=== PATIENT | female | born 1975 | race Caucasian/White ===

== ENCOUNTER 2019-04-08 20:31 | Emergency (ER) | payer OTHER ==
[~2019-04-08] VITALS: Ht 157.5 cm; Wt 73.0 kg
== END 2019-04-08 22:43 | disposition home or self-care (01) ==
LOC: ER 20:31
DX: S81.821A Laceration with foreign body, right lower leg, initial encounter (principal); S80.02XA Contusion of left knee, initial encounter; S80.01XA Contusion of right knee, initial encounter; W10.8XXA Fall (on) (from) other stairs and steps, initial encounter; Y93.89 Activity, other specified; Y92.69 Other specified industrial and construction area as the place of occurrence of the external cause; Y99.8 Other external cause status

== ENCOUNTER 2021-06-30 05:24 | Emergency (ER) | payer OTHER ==
[~2021-06-30] VITALS: Ht 157.5 cm; Wt 71.2 kg
== END 2021-06-30 15:57 | disposition home or self-care (01) ==
LOC: ER 05:24
DX: K29.60 Other gastritis without bleeding (principal)

== ENCOUNTER 2022-10-24 09:58 | Emergency (ER) | payer OTHER ==
[~2022-10-24] VITALS: Ht 157.5 cm; Wt 68.0 kg
== END 2022-10-24 15:10 | disposition home or self-care (01) ==
LOC: ER 09:58
DX: K29.70 Gastritis, unspecified, without bleeding (principal); Z20.822 Contact with and (suspected) exposure to COVID-19

== ENCOUNTER 2023-05-26 10:55 | Inpatient (IN) | payer OTHER ==
[~2023-05-26] VITALS: Ht 157.5 cm; Wt 68.0 kg
--- NOTE | 2023-05-26 11:25 | NUR ---
PACIENTE ALERTA Y ORIENTADA POR 3 ESFERAS REFIERE TAMERA DOLOR ABDONMINAL Y MAS DE 10 ESPISODIOS DE VOMITOS, SE MIDEN S/V, SE UBICA PACIENTE.
--- NOTE | 2023-05-26 12:40 | NUR ---
SE LE ORIENTA A PACIENTE SOBRE LAS ORDENES MEDICAS, REFIERE ENTENDER LAS MISMAS. SE CANALIZA Y SE LE COLOCA LOS IVF'S, SE LE WILL LAS MUETRAS Y SE LE ADMINISTRAN LOS MEDICAMENTOS TOSHA LAS ORDENES MEDICAS.
--- NOTE | 2023-05-26 23:35 | NUR ---
SE RECIBE PACIENTE ALERTA Y ORIENTADO X3. LA MISMA EN [place]CANSO EN CAMA CON KWOK CANALIZACION PATENTE Y IVFS DE MANTENIMIENTO. LA MISMA CONSULTADA CON EL DR. ESTEFANY ALLISON POR APENDICITIS.
[2023-05-28] MEDS ORDERED: AMOX-CLAV 875-1 EACH PO (18:42)
== END 2023-05-28 18:56 | disposition home or self-care (01) | DRG 343 ==
LOC: ER 10:55 → SURH 05-27 00:30 → SURG 05-28 13:49
PROVIDERS: Emergency Medicine; General Practice; Surgery; ADMIT Specialist; ATTEND Specialist
PROC: BW40ZZZ Ultrasonography of Abdomen (ICD-10-PCS; 2023-05-26)
PROC: BW21YZZ Computerized Tomography (CT Scan) of Abdomen and Pelvis using Other Contrast (ICD-10-PCS; 2023-05-26)
PROC: 0DTJ4ZZ Resection of Appendix, Percutaneous Endoscopic Approach (ICD-10-PCS; principal; 2023-05-27 11:00)
DX: K35.30 Acute appendicitis with localized peritonitis, without perforation or gangrene (principal); R11.15 Cyclical vomiting syndrome unrelated to migraine; D72.828 Other elevated white blood cell count; Z20.822 Contact with and (suspected) exposure to COVID-19